=== PATIENT | male | born 1960 | race Caucasian/White ===

== ENCOUNTER 2016-11-28 11:50 | Emergency (ER) | payer MEDICARE, OTHER ==
[2016-11-28 12:03] VITALS: TEMP 98; O2SAT 97
--- NOTE | 2016-11-28 12:38 | ED.PDOC ---
History of Present Illness - General Chief Complaint: Back Pain or Injury Stated Complaint: back discomfort Time Seen by Provider: 11/28/16 12:27 Source: patient Exam Limitations: no limitations - History of Present Illness Initial Comments: Patient complains of three days of acute on chronic back pain. He has problems with his lumbar and cervical discs from an injury in the . Three days ago he was coughing from a URI and he felt a pop in his lumbar region. The pain is about L3, non-radiating, sharp, constant but intermittent in intensity, + previous episodes, worse with movement, better with rest, bad with laying flat. No associated sx. Timing/Duration: other - 3 days Quality/Severity: severe Back Pain Location: lumbar spine Method of Injury/Prior Injury: other - coughing Improving Factors: rest Worsening Factors: movement Associated Symptoms: denies symptoms Allergies/Adverse Reactions: Allergies Codeine Allergy (Verified 11/28/16 12:08) Other Causes swelling Home Medications: Ambulatory Orders Atorvastatin Calcium [Lipitor] 20 mg PO BEDTIME 11/28/16 BuPROPion XL [Wellbutrin XL] 75 mg PO DAILY 11/28/16 Cyclobenzaprine HCl [Flexeril] 10 mg PO TID #20 tab 11/28/16 Meloxicam 15 mg PO DAILY 11/28/16 Metformin HCl [Metformin HCl ER] 1,000 mg PO DAILY 11/28/16 Nortriptyline HCl [Pamelor] 20 mg PO BEDTIME 11/28/16 Pantoprazole Sodium [Protonix] 40 mg PO DAILY 11/28/16 Trazodone HCl 50 mg PO BEDTIME 11/28/16 Review of Systems - Review of Systems Constitutional: States: no symptoms reported EENTM: States: no symptoms reported Respiratory: States: no symptoms reported Cardiology: States: no symptoms reported Gastrointestinal/Abdominal: States: no symptoms reported Genitourinary: States: no symptoms reported Musculoskeletal: States: see HPI Skin: States: no symptoms reported Neurological: States: no symptoms reported Endocrine: States: no symptoms reported Hematologic/Lymphatic: States: no symptoms reported Past Medical History (General) - Patient Medical History Hx Stroke: No Hx of COPD: Yes Hx Congestive Heart Failure: No Hx Diabetes: Yes Hx Gastroesophageal Reflux: Yes Hx Cancer: Yes - prostate CA - Vaccination History Hx Influenza Vaccination: No Hx Pneumococcal Vaccination: Yes - 2014 - Social History Hx Tobacco Use: Yes - Quit 2007 Family Medical History - Family History Father Living Status: Cause of : diabetic complications Hx Family Diabetes: Yes Physical Exam - Physical Exam General Appearance: Obvious distress Eyes, Ears, Nose, Throat Exam: normal ENT inspection Neck Exam: non-tender, full range of motion, normal alignment Cardiovascular/Respiratory: regular rate, rhythm Gastrointestinal/Abdominal: normal bowel sounds, non tender, soft Back Exam: vertebral tenderness - Tender over L3. Heel walking worsens the pain. Negative straight and cross leg raises. Unable to flex the trunk without extreme pain. Extremity Exam: no evidence of injury Neurologic: no motor/sensory deficits Skin Exam: normal color Progress - Progress Progress: 11/28/16 12:39 Toradol 30 mg IM x one. Flexeril 10 mg po x one. 11/28/16 12:40 Suspicious for disc disease. Patient give numbers for primary care physicians so he could get an MRI ordered. Because there was no trauma and the patient has chronic disc disease, radiographs and CT are unlikely to be useful. 11/28/16 13:51 Discharged with flexeril and lortab and instructions to follow up with PCP. Departure - Departure Clinical Impression: Lumbar back pain Disposition: Discharge to Home or Self Care Departure Forms: ED Discharge - Pt. Copy, Patient Portal Self Enrollment Diet: diabetic diet Activity: increase activity as tolerated Prescriptions: Cyclobenzaprine HCl [Flexeril] 10 mg PO TID #20 tab Home Medications: Ambulatory Orders Atorvastatin Calcium [Lipitor] 20 mg PO BEDTIME 11/28/16 BuPROPion XL [Wellbutrin XL] 75 mg PO DAILY 11/28/16 Cyclobenzaprine HCl [Flexeril] 10 mg PO TID #20 tab 11/28/16 Meloxicam 15 mg PO DAILY 11/28/16 Metformin HCl [Metformin HCl ER] 1,000 mg PO DAILY 11/28/16 Nortriptyline HCl [Pamelor] 20 mg PO BEDTIME 11/28/16 Pantoprazole Sodium [Protonix] 40 mg PO DAILY 11/28/16 Trazodone HCl 50 mg PO BEDTIME 11/28/16 Additional Instructions: Follow up with primary care physician for referral for MRI. Take medications as prescribed if needed.
[2016-11-28] MEDS ORDERED: KETOROLAC TROMETHAMINE INJ 30 MG/ML VIAL IM ONE (12:44)
[2016-11-28] MEDS ORDERED: CYCLOBENZAPRINE HCL 10 MG TAB PO ONE (12:45)
[2016-11-28 14:08] VITALS: BP 153/78
== END 2016-11-28 14:00 | disposition home or self-care (01) ==
LOC: ER 11:50
DX: M54.5 Low back pain (principal); J44.9 Chronic obstructive pulmonary disease, unspecified; K21.9 Gastro-esophageal reflux disease without esophagitis; E11.9 Type 2 diabetes mellitus without complications; Z85.46 Personal history of malignant neoplasm of prostate; Z87.891 Personal history of nicotine dependence; Z88.6 Allergy status to analgesic agent

== ENCOUNTER → 2016-12-30 | Outpatient (CLI) | payer OTHER, MEDICARE ==
--- NOTE | 2017-01-05 00:36 | MRI ---
EXAM DESCRIPTION: Lumbar Spine w/o Contrast CLINICAL HISTORY: 56 years Male, LUMBAR RADICULOPATHY COMPARISON: None. TECHNIQUE: Multiplanar, multisequence imaging of the lumbar spine was performed without contrast. FINDINGS: Vertebral body height, alignment and marrow signal are unremarkable. There is disc desiccation at all levels, with intervertebral disc height loss only at L5-S1. The conus terminates at L1-L2 and is unremarkable. L1-L2: No spinal canal or neuroforaminal narrowing. L2-L3: No spinal canal or neural foraminal narrowing. 2 mm circumferential disc bulge. L3-4: Mild right facet degeneration. 2 mm circumferential disc bulge. No spinal canal or neural foraminal narrowing. L4-5: 4 mm circumference of disc bulge and posterior annular tear. Mild facet degeneration and ligamentum flavum thickening. There is no spinal canal narrowing. No neural foraminal narrowing. L5-S1: Mild 3 mm cervical vertebral disc bulge. There is an extruded and inferiorly migrated disc fragment noted within the right paracentral location of the epidural space. This contacts the medial margin of the descending right S1 nerve root. This measures approximately 6 mm AP by 6 mm transverse by 2 cm craniocaudal. The midline diameter of the spinal canal at this level is adequate at 1.5 cm. There is mild bilateral neural foraminal narrowing. IMPRESSION: Today's exam demonstrates multilevel degenerative change with annular tears at L4-5 and L5-S1. At L5-S1 there is an extruded right paracentral disc fragment with inferior migration. There is contact of the descending right S1 nerve root, but no displacement by this extruded and inferiorly migrated disc fragment. 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
== END | disposition home or self-care (01) ==
LOC: MRI 07:46
PROVIDERS: ATTEND Family Medicine
DX: M54.16 Radiculopathy, lumbar region (principal)

== ENCOUNTER 2017-04-08 05:45 | Day surgery (SDC) | payer OTHER, MEDICARE ==
[2017-04-08] MEDS ORDERED: LACTATED RINGERS 1,000 ML ONE (06:13)
[2017-04-08 09:14] VITALS: O2SAT 97
--- NOTE | 2017-04-08 09:57 | OP ---
DATE OF PROCEDURE: 04/08/17 PREOPERATIVE DIAGNOSIS: 1. Guaiac-positive stool. 2. Hematochezia. POSTOPERATIVE DIAGNOSIS: 1. Colonic polyps. 2. Diverticulosis. 3. Internal hemorrhoids. PROCEDURE: 1. Colonoscopy plus polypectomy. SURGEON: Mauricio Sung MD. COMPLICATIONS: None apparent. BLOOD LOSS: None. MEDICATIONS: Monitored anesthesia care. DESCRIPTION OF PROCEDURE: Informed consent was obtained prior to sedation. The preprocedure cardiopulmonary assessment was satisfactory. The patient was placed in the left lateral decubitus position and was sedated. The perianal exam revealed no significant external hemorrhoids and no other significant perianal disease. A digital rectal exam was unremarkable. The tip of the Olympus colonoscope was inserted in the rectum. Retroflexed view of the rectum does reveal some non-bleeding internal hemorrhoids. The scope was then advanced over to the cecum. The cecum was identified by locating the ileocecal valve and appendiceal orifice. Prep was good. The mucosa of the cecum, ascending colon, hepatic flexure, transverse colon, splenic flexure, descending colon and sigmoid colon was closely examined. Direct and retroflexed views of the rectum were obtained. There was a 2 cm villous appearing polyp right on the ileocecal valve. This was removed in a piecemeal fashion and recovered. A second polyp was found in the descending colon and was about 6 mm in size. This was removed with a hot snare and recovered. A third polyp was a 4 mm sessile polyp in the sigmoid colon and this removed with a cold snare and recovered. There were numerous diverticula scattered in the sigmoid, descending and ascending colon. Otherwise, the colonoscopy was unremarkable. RECOMMENDATIONS: 1. Await the polyp pathology. 2. If the patient's bleeding persists, we can consider outpatient, in office hemorrhoid banding. #[id number] cc: [facility]
[2017-04-08] MEDS ORDERED: LIDOCAINE 1% 10 ML VIAL INJ ONE (11:00)
[2017-04-08] MEDS ORDERED: PROPOFOL 200 MG/20 ML VIAL IV ONE (11:00)
[2017-04-08 13:38] VITALS: BP 104/63; TEMP 97.6
== END 2017-04-08 10:05 | disposition home or self-care (01) ==
LOC: AMB 05:45
PROVIDERS: ATTEND Internal Medicine Gastroenterology
DX: K92.1 Melena (principal); D12.0 Benign neoplasm of cecum; D12.4 Benign neoplasm of descending colon; D12.5 Benign neoplasm of sigmoid colon; K57.30 Diverticulosis of large intestine without perforation or abscess without bleeding; K64.8 Other hemorrhoids; E11.9 Type 2 diabetes mellitus without complications; K21.9 Gastro-esophageal reflux disease without esophagitis; Z87.891 Personal history of nicotine dependence; Z88.8 Allergy status to other drugs, medicaments and biological substances; Z86.010 Personal history of colon polyps; Z79.899 Other long term (current) drug therapy